=== PATIENT | male | born 1950 ===

== ENCOUNTER 2019-02-15 05:24 | Day surgery (SDC) | payer OTHER ==
[~2019-02-15 05:24] MED LIST: ENALAPRIL MALE2.5 MG
[2019-02-15] MEDS ORDERED: PERCOCET 5-3251 EACH PO (10:37)
[2019-02-15] MEDS ORDERED: COLACE100 MG PO (10:37)
== END 2019-02-15 15:50 | disposition home or self-care (01) ==
LOC: CIR.AMB 05:24
DX: K60.3 Anal fistula (principal)